=== PATIENT | female | born 1955 | race Caucasian/White ===

== ENCOUNTER 2017-11-12 07:22 | Day surgery (SDC) | payer OTHER ==
[~2017-11-12] VITALS: Ht 162.6 cm; Wt 77.0 kg
[~2017-11-12 07:22] MED LIST: AMBIEN5 MG PO; CITRACAL W/V1 TABLE1 PO; DEXILANT60 MG PO; EFFEXOR PO; EFFEXOR XR150 MG PO; FLONASE16 G1 BOTH NARES; HYDROCHLOROTHIA25 MG PO; MIRALAX17 GM PO; NEXIUM40 MG PO; NITROSTAT0.3 MG SL; NORVASC10 MG PO; SINGULAIR10 MG PO; TAMOXIFEN CITRA20 MG PO; TOPROL XL50 MG PO; VERAPAMIL HCL180 MG PO; VITAMIN C1000 MG PO; VITAMIN D2000 UNIT PO; XANAX0.5 MG PO
[2017-11-12 10:08] LABS: CHLORIDE 106 mEq/L (99-109); POTASSIUM 4.6 mEq/L (3.7-5.4); SODIUM 143 mEq/L (136-147)
[2017-11-12 10:09] LABS: GLUCOSE 84 mg/dL (70-99)
[2017-11-12 10:13] LABS: CREATININE 0.9 mg/dL (0.6-1.3); GFR ESTIMATE (CALCULATED) > 59 mL/min/
[2017-11-12 10:14] LABS: UREA NITROGEN (BUN) 19 mg/dL (9-23)
== END 2017-11-12 14:25 | disposition home or self-care (01) ==
LOC: CATH 07:22
PROVIDERS: Internal Medicine Interventional Cardiology
DX: I42.1 Obstructive hypertrophic cardiomyopathy (principal); I34.0 Nonrheumatic mitral (valve) insufficiency; I49.3 Ventricular premature depolarization; I10 Essential (primary) hypertension; E66.9 Obesity, unspecified; Z85.3 Personal history of malignant neoplasm of breast; Z85.118 Personal history of other malignant neoplasm of bronchus and lung; Z87.891 Personal history of nicotine dependence; Z68.28 Body mass index [BMI] 28.0-28.9, adult
CPT/HCPCS: 80048; C1769; C1788; C1887; J1644; J2250; J7040

== ENCOUNTER → 2018-01-26 | Outpatient (CLI) | payer OTHER ==
[~2018-01-26] VITALS: Ht 165.1 cm; Wt 77.1 kg
== END | disposition home or self-care (01) ==
LOC: AMB 01-18 12:00
DX: D50.9 Iron deficiency anemia, unspecified (principal); K21.9 Gastro-esophageal reflux disease without esophagitis; K44.9 Diaphragmatic hernia without obstruction or gangrene; K29.60 Other gastritis without bleeding; Z80.0 Family history of malignant neoplasm of digestive organs; K64.8 Other hemorrhoids; K57.30 Diverticulosis of large intestine without perforation or abscess without bleeding; D12.2 Benign neoplasm of ascending colon; Z85.3 Personal history of malignant neoplasm of breast; Z85.118 Personal history of other malignant neoplasm of bronchus and lung; Z86.010 Personal history of colon polyps; I25.10 Atherosclerotic heart disease of native coronary artery without angina pectoris; Z80.1 Family history of malignant neoplasm of trachea, bronchus and lung; Z80.6 Family history of leukemia; Z80.41 Family history of malignant neoplasm of ovary; Z87.891 Personal history of nicotine dependence; Z88.5 Allergy status to narcotic agent; Z91.048 Other nonmedicinal substance allergy status
CPT/HCPCS: 88305; 88342 TC; J2250; J3010